=== PATIENT | female | born 1980 | race Caucasian/White ===

== ENCOUNTER 2017-07-28 15:39 | Emergency (ER) | payer SELFPAY ==
[~2017-07-28] VITALS: Ht 165.1 cm; Wt 90.7 kg
[2017-07-28 19:17] VITALS: BP 128/89
== END 2017-07-28 16:35 | disposition home or self-care (01) ==
LOC: FSED 15:39
DX: R51 Headache (principal); M62.838 Other muscle spasm; R53.1 Weakness; R53.83 Other fatigue; J45.909 Unspecified asthma, uncomplicated
CPT/HCPCS: 99282